=== PATIENT | female | born 1970 | race American Indian/Alaskan Native ===

== ENCOUNTER 2018-06-07 11:35 | Emergency (ER) | payer OTHER ==
[2018-06-07] MEDS ORDERED: NACL 0.9% 1000 ML 1,000 ML IV ONE (11:49)
[2018-06-07 12:17] LABS: Basophils % (Auto) 0.4 % (0.0-1.8); Eosinophils # (Auto) 0.1 K/mm3 (0.0-0.4); Hematocrit 45.7 % (30.3-42.9); Hemoglobin 15.5 gm/dl (10.1-14.3); Lymphocytes # (Auto) 1.7 K/mm3 (1.2-5.4); Lymphocytes % (Auto) 35.9 % (13.4-35.0); Mean Corpuscular HGB Conc 34 % (30-34); Mean Corpuscular Hemoglobin 33 pg (28-32); Mean Corpuscular Volume 98 fl (79-97); Monocytes # (Auto) 0.5 K/mm3 (0.0-0.8); Monocytes % (Auto) 10.5 % (0.0-7.3); Platelet Count 236 K/mm3 (140-440); Red Blood Count 4.69 M/mm3 (3.65-5.03); Red Cell Distribution Width 13.7 % (13.2-15.2)
[2018-06-07 12:40] LABS: Alanine Aminotransferase 20 units/L (7-56); Albumin 4.2 g/dL (3.9-5); BUN/Creatinine Ratio 10; Blood Urea Nitrogen 8 mg/dL (7-17); Hemolysis Index 8; Lipase 16 units/L (13-60)
[2018-06-07 13:53] LABS: Bilirubin,Urine NEG (Negative); Blood,Urine NEG (Negative); Color,Urine Yellow (Yellow); Mucus,Urine FEW /HPF; Protein,Urine <15 mg/dL mg/dL (Negative); Urobilinogen,Urine < 2.0 mg/dL (<2.0)
--- NOTE | 2018-06-07 15:21 | Emergency Department Report ---
ED General Adult HPI - General Chief complaint: Back Pain/Injury Stated complaint: GAS BACK PAIN Time Seen by Provider: 06/07/18 15:19 Source: patient Mode of arrival: Ambulatory Limitations: No Limitations - History of Present Illness Initial comments: Chief complaint: Abdominal distention and bloating, alcohol abuse, back pain, elevated blood pressure 54-year-old man, with history significant only for hypertension, presents with 3 -4 day history of mid lumbar back pain, of spontaneous onset, which has been persistent, deep and aching, worse with movement, but also with associated mild nausea, mild abdominal discomfort, generalized, as well as loose stools for the past 3 days. Patient's history is complicated by his recent ingestion of supratherapeutic amounts of milk of magnesia, which he initiated on his own for desire to days before onset of these symptoms, in order to have a significant bowel movement, reporting that he took larger doses than normal, figuring if recommended dose was good, then more must be better. Discomfort is moderate, be in 7-8 out of 10, is deep and aching in the mid lumbar area bilaterally in the muscular areas, without significant radiation, but is exacerbated by movement. He does have some minor nausea, no repetitive vomiting, no abdominal pain to any extent, and only over the past 3 days as he had diarrhea, but without melena or hematochezia. Patient has a significant past history of chronic alcohol use, typically a 6 pack of beer per day, works in a periods of time, going back years, with more on weekends, up to a 12 pack, but no past history of ulcer disease, gastrointestinal bleeding, peritonitis, or secondary complications associated with chronic on-call use. He's never been told that he has been drinking to abuse, and has never experienced blackouts. 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 He also has no ill contacts, and has no secondary symptoms of fever chills or diaphoresis, no cough or congestion, no sputum production, mild nausea from time to time, but he has been eating fairly well, no vomiting, has been having several loose bowel movements per day. He has not had any melena, and no hematochezia. Patient takes medication for hypertension, does not smoke cigarettes, occasionally smokes marijuana, has no history of ulcer disease, no gastrointestinal issues, no history of kidney stones. - Related Data Home Medications Medication Instructions Recorded Confirmed Last Taken Hydrochlorothiazide 25 mg PO DAILY 06/07/18 06/07/18 Unknown Nifedipine 60 mg PO DAILY 06/07/18 06/07/18 Unknown Previous Rx's Medication Instructions Recorded Last Taken Type Cyclobenzaprine HCl 7.5 mg PO TID PRN #30 tab 06/07/18 Unknown Rx [Cyclobenzaprine 7.5 MG TAB] HYDROcodone/APAP 7.5-325 [Foley 1 each PO Q6HR PRN #20 tablet 06/07/18 Unknown Rx 7.5/325] Hydrochlorothiazide [HCTZ] 25 mg PO QDAY #30 tablet 06/07/18 Unknown Rx Meloxicam 15 mg PO DAILY #10 tablet 06/07/18 Unknown Rx NIFEdipine [Nifedipine ER] 60 mg PO DAILY #30 tab.er.24 06/07/18 Unknown Rx Allergies Allergy/AdvReac Type Severity Reaction Status Date / Time No Known Allergies Allergy Unverified 06/07/18 11:49 ED Review of Systems ROS: Stated complaint: GAS BACK PAIN Other details as noted in HPI ED Past Medical Hx - Past Medical History Hx Hypertension: Yes - Surgical History Past Surgical History?: No - Social History Smoking Status: Never Smoker Substance Use Type: Alcohol - Medications Home Medications: Home Medications Medication Instructions Recorded Confirmed Last Taken Type Cyclobenzaprine HCl 7.5 mg PO TID PRN #30 tab 06/07/18 Unknown Rx [Cyclobenzaprine 7.5 MG TAB] HYDROcodone/APAP 7.5-325 [Foley 1 each PO Q6HR PRN #20 tablet 06/07/18 Unknown Rx 7.5/325] Hydrochlorothiazide 25 mg PO DAILY 06/07/18 06/07/18 Unknown History Hydrochlorothiazide [HCTZ] 25 mg PO QDAY #30 tablet 06/07/18 Unknown Rx Meloxicam 15 mg PO DAILY #10 tablet 06/07/18 Unknown Rx NIFEdipine [Nifedipine ER] 60 mg PO DAILY #30 tab.er.24 06/07/18 Unknown Rx Nifedipine 60 mg PO DAILY 06/07/18 06/07/18 Unknown History ED Physical Exam - General Limitations: No Limitations General appearance: alert, in no apparent distress (minimal discomfort with moving), other (patient is hypertensive in emergency department) - Head Head exam: Present: atraumatic, normocephalic - Eye Eye exam: Present: normal appearance, PERRL, EOMI - ENT ENT exam: Present: normal exam, mucous membranes moist - Neck Neck exam: Present: normal inspection, full ROM. Absent: tenderness - Respiratory Respiratory exam: Present: normal lung sounds bilaterally. Absent: respiratory distress, wheezes, rales, chest wall tenderness - Cardiovascular Cardiovascular Exam: Present: regular rate, normal heart sounds. Absent: systolic murmur, diastolic murmur - GI/Abdominal GI/Abdominal exam: Present: soft, normal bowel sounds. Absent: tenderness, guarding, rebound, mass - Rectal Rectal exam: Present: deferred - Extremities Exam Extremities exam: Present: normal inspection, full ROM, normal capillary refill. Absent: tenderness, pedal edema - Back Exam Back exam: Present: normal inspection, tenderness (bilateral paralumbar muscular tenderness, mid lumbar area, worse on right than left). Absent: CVA tenderness (R), CVA tenderness (L), muscle spasm, vertebral tenderness, rash noted - Neurological Exam Neurological exam: Present: alert, oriented X3, CN II-XII intact. Absent: motor sensory deficit - Psychiatric Psychiatric exam: Present: normal affect, normal mood - Skin Skin exam: Present: warm, dry, intact. Absent: rash ED Course Vital Signs 06/07/18 06/07/18 06/07/18 11:44 14:56 18:09 Temperature 36.8 C Pulse Rate 57 L 84 50 L Respiratory 18 16 16 Rate Blood Pressure 210/122 Blood Pressure 192/114 188/105 [Left] O2 Sat by Pulse 99 96 97 Oximetry 06/07/18 19:56 Temperature Pulse Rate 52 L Respiratory Rate Blood Pressure 177/113 Blood Pressure [Left] O2 Sat by Pulse Oximetry - Reevaluation(s) Reevaluation #1: 06/07/18 20:05 Patient significantly improved, moving much more comfortably, still has residual tenderness in the right paralumbar musculature, which reproduces his discomfort, negligible discomfort on the left, and he moves much more easily. Abdomen is benign on examination, lungs are clear, he is neurologically intact, feels much better, but remains hypertensive blood pressure 171/113. We discussed blood pressure monitoring options, with recommendation for keeping a log. ED Medical Decision Making - Lab Data Result diagrams: 06/07/18 12:05 06/07/18 12:05 - EKG Data -: EKG Interpreted by Me EKG shows normal: sinus rhythm, axis, intervals, QRS complexes (LVH), ST-T waves (nonspecific, no acute changes, no STEMI) - EKG Data When compared to previous EKG there are: previous EKG unavailable - Medical Decision Making Patient has clearcut musculoskeletal tenderness in the paralumbar soft tissue, of the mid lumbar region, little worse on the right than on the left, with significant improvement with treatment with analgesics and muscle relaxants. Abdomen remains benign, laboratory evaluation is unremarkable, urinalysis is negative. 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 Blood pressure remains elevated, and I recommended that he keep a log, and discussed with his doctor at expedited follow-up in one or 2 weeks. I also refilled for patient for nifedipine and chlorothiazide, as patient is currently noncompliant on his medications. Critical Care Time: No Critical care attestation.: If time is entered above; I have spent that time in minutes in the direct care of this critically ill patient, excluding procedure time. ED Disposition Clinical Impression: Acute lumbar myofascial strain Qualifiers: Encounter type: initial encounter Qualified Code(s): S39.012A - Strain of muscle, fascia and tendon of lower back, initial encounter Disposition: DC-01 TO HOME OR SELFCARE Is pt being admited?: No Does the pt Need Aspirin: No Condition: Stable Instructions: Muscle Strain (ED) Additional Instructions: We are treating you for muscle strain with analgesics, hydrocodone, as well as anti-inflammatory pain medication, meloxicam, and muscle relaxants, cyclobenzaprine. Take each of these as directed, and as needed, but you may not take muscle relaxants or narcotic pain medication once your back at work or operating heavy machinery. Nonpharmacologic measures such as local cool compresses or heating pads baby applied 3-4 times per day, at moderate levels, 15-30 minutes at a time, primarily for comfort. You do not have to continue this if he is getting no relief. Avoid sudden movements, but once the worst the pain is over, "gentle stretching exercises, holding the positions, to retrain the muscles to start numbering up again, and to relieve any spasm. Provided a work release for 2 days, told you to use this time to rest, avoid any significant physical activity, which may be up and around. The blood pressure is elevated today, and were not making any changes in her blood pressure treatment, but want you to start keeping a more regular record of your blood pressure, measurement at the same time of the day, preferably in the morning, 3-4 times per week, and keep a record of this in a note. Have a recheck with your doctor in a couple of weeks, discussed the trends of your blood pressure, and see if he needs any adjustments in her current medications. Otherwise take your locations regularly as previously prescribed. Prescriptions: Cyclobenzaprine HCl [Cyclobenzaprine 7.5 MG TAB] 7.5 mg PO TID PRN #30 tab PRN Reason: Muscle Spasm Hydrochlorothiazide [HCTZ] 25 mg PO QDAY #30 tablet HYDROcodone/APAP 7.5-325 [Foley 7.5/325] 1 each PO Q6HR PRN #20 tablet PRN Reason: Pain Meloxicam 15 mg PO DAILY #10 tablet NIFEdipine [Nifedipine ER] 60 mg PO DAILY #30 tab.er.24 Referrals: PRIMARY CARE, [Primary Care Provider] - 3-5 Days Forms: Work/School Release Form(ED) Time of Disposition: 20:13
[2018-06-07 16:07] LABS: Bacteria,Urine 1+ /HPF (Negative); Bilirubin,Urine NEG (Negative); Blood,Urine NEG (Negative); Color,Urine Yellow (Yellow); Protein,Urine <15 mg/dL mg/dL (Negative); RBC,Urine < 1.0 /HPF (0.0-6.0); Urobilinogen,Urine < 2.0 mg/dL (<2.0)
[2018-06-07] MEDS ORDERED: NORCO 10/325 PO ONE (16:39)
[2018-06-07] MEDS ORDERED: FLEXERIL PO ONE (16:39)
[2018-06-07] MEDS ORDERED: CATAPRES PO ONE (19:47)
[2018-06-07 20:34] VITALS: BP 171/107
== END 2018-06-07 20:34 | disposition home or self-care (01) ==
LOC: ED 11:35
DX: S39.012A Strain of muscle, fascia and tendon of lower back, initial encounter (principal); I10 Essential (primary) hypertension; X58.XXXA Exposure to other specified factors, initial encounter; Y93.89 Activity, other specified; Y99.8 Other external cause status; Y92.89 Other specified places as the place of occurrence of the external cause
CPT/HCPCS: 36415; 80053; 81001; 83690; 85025; 93005; 93010